=== PATIENT | female | born 1970 | race Caucasian/White ===

== ENCOUNTER → 2023-10-15 11:47 | Outpatient (REF) | payer OTHER, SELFPAY | LOC: WDC 11:47 | PROVIDERS: ATTENDING PHYSICIAN Obstetrics & Gynecology Gynecology; FAMILY PHYSICIAN Internal Medicine | DX: Z12.31 Encounter for screening mammogram for malignant neoplasm of breast (principal) | CPT/HCPCS: 77063; 77067 ==

== ENCOUNTER → 2024-10-16 15:15 | Outpatient (REF) | payer OTHER, SELFPAY | LOC: WDC 15:15 | PROVIDERS: ATTENDING PHYSICIAN Obstetrics & Gynecology Gynecology; FAMILY PHYSICIAN Internal Medicine | DX: Z12.31 Encounter for screening mammogram for malignant neoplasm of breast (principal) | CPT/HCPCS: 77063; 77067 ==

== ENCOUNTER → 2024-12-15 12:20 | Outpatient (REF) | payer OTHER, SELFPAY | LOC: HWRAD 12:20 | PROVIDERS: ATTENDING PHYSICIAN Internal Medicine | DX: M25.841 Other specified joint disorders, right hand (principal) | CPT/HCPCS: 73100; 73120 ==